=== PATIENT | female | born 1980 | race Caucasian/White ===

== ENCOUNTER 2023-06-07 15:10 | Emergency (ER) | payer MEDICAID ==
[~2023-06-07] VITALS: Ht 170.2 cm; Wt 54.0 kg
[2023-06-07 16:30] VITALS: TEMP 98.4
[2023-06-07 17:42] VITALS: BP 134/86; PULSE 95; RESP 18
== END 2023-06-07 18:31 | disposition left against medical advice (07) ==
LOC: EMS 15:15
DX: F41.0 Panic disorder [episodic paroxysmal anxiety] (principal); F20.9 Schizophrenia, unspecified; F17.210 Nicotine dependence, cigarettes, uncomplicated; F15.90 Other stimulant use, unspecified, uncomplicated; Z88.8 Allergy status to other drugs, medicaments and biological substances; Z00.00 Encounter for general adult medical examination without abnormal findings
CPT/HCPCS: 99283; Z7502

== ENCOUNTER 2023-11-27 20:27 | Emergency (ER) | payer MEDICAID ==
[~2023-11-27] VITALS: Ht 165.1 cm; Wt 50.0 kg
[2023-11-27 20:33] VITALS: BP 131/84; PULSE 95; RESP 12; TEMP 100.6
== END 2023-11-28 00:08 ==
LOC: EMS 20:27
DX: R45.1 Restlessness and agitation (principal); F20.9 Schizophrenia, unspecified; F17.210 Nicotine dependence, cigarettes, uncomplicated; F15.90 Other stimulant use, unspecified, uncomplicated; Z88.8 Allergy status to other drugs, medicaments and biological substances
CPT/HCPCS: 99281; Z7502